=== PATIENT | female | born 1965 | race Caucasian/White ===

== ENCOUNTER → 2016-06-27 | Outpatient (CLI) | payer OTHER ==
[~2016-06-27] MED LIST: B-COTAB41 PO; CALC600T25; CALC600T34 PO; COEN1CAP; CYAN1KIT2 IM; EEMTTAB2; MAXA10TA2 PO; MECL25CH PO; MULTCAP3 PO; OMEG100037 PO; OMEG1CAP53 PO; PROT40TA PO; TAB-TAB PO; TRAM50TA PO; VIT B COMPLEX; ZOFR4TAB PO; ZOFR4TAB3 SL; [UNRECOGNIZED DRUG - OTHER]
[2016-06-27 14:03] LABS: AUTOMATED NEUTROPHIL # 5.3 TH/MM3 (1.8-7.7); BASOPHIL # 0.1 TH/MM3 (0-0.2); BASOPHIL % 0.8 % (0.0-2.0); EOSINOPHIL # 0.1 TH/MM3 (0-0.4); EOSINOPHIL % 0.8 % (0.0-4.0); HEMATOCRIT 40.5 % (35.0-46.0); HEMO FLAGS DIFF FINAL; LYMPH % 25.4 % (9.0-44.0); LYMPHOCYTE # 2.1 TH/MM3 (1.0-4.8); MEAN CELL VOLUME 87.4 FL (80.0-100.0); MEAN CORPUSCULAR HEMOGLOBIN 30.4 PG (27.0-34.0); MEAN CORPUSCULAR HGB CONC 34.8 % (32.0-36.0); PLATELET COUNT 181 TH/MM3 (150-450); RED BLOOD COUNT 4.63 MIL/MM3 (4.00-5.30); RED CELL DISTRIBUTION WIDTH 14.5 % (11.6-17.2); WHITE BLOOD COUNT 8.2 TH/MM3 (4.0-11.0)
== END ==
LOC: CLAB 13:29
PROVIDERS: ATTEND Family Medicine
DX: K62.5 Hemorrhage of anus and rectum (principal)
CPT/HCPCS: 36415; 85025

== ENCOUNTER → 2016-07-11 | Outpatient (CLI) | payer OTHER ==
[~2016-07-11] VITALS: Ht 170.8 cm; Wt 96.7 kg
[~2016-07-11] MED LIST changes: +INSULIN HUMAN REGULAR 1,000 UNITS/10 ML VIAL SQ PRN; +LACTATED RINGER'S 1000 ML IV SCH; +METOPROLOL TARTRATE 25 MG TAB PO PRN; +PROPOFOL 200 MG/20 ML AMP IV ONE; +SODIUM CHLORID 0.9% 500 ML IV SCH
[2016-07-11 13:54] VITALS: BP 120/73; PULSE 62; RESP 16; TEMP 97.5; O2SAT 97
[2016-07-11 15:31] VITALS: BP 115/61; PULSE 74; RESP 16; O2SAT 97
--- NOTE | 2016-07-12 13:10 | EKG ---
Date Performed: 07/11/2016 Time Performed: 13:21:23 PTAGE: 51 years EKG: SINUS BRADYCARDIA BORDERLINE ECG Compared to prior tracing no significant change PREVIOUS TRACING : 11/09/2007 11.03 DOCTOR: Kashif Gil Interpretating Date/Time 07/12/2016 13:09:11
--- NOTE | 2016-07-14 13:06 | MR ---
cc: CHELSEY AGUIRRE M.D., HARRY M.D. DATE: 07/11/2016 DATE OF : 1965 TYPE OF PROCEDURE Panendoscopy and colonoscopy with polypectomy performed by Dr. Carlyle Villavicencio. The patient is an outpatient. INDICATIONS FOR PROCEDURE GI bleeding. On June 27 she had passed maroon stool 3-4 times. The stool was loose associated with this bloody passage. No pain or other associated symptoms. She is status post Prema-en-Y gastric bypass many years ago and has chronic iron deficiency anemia as a result. ANESTHESIA Sedation per anesthesiology. INSTRUMENT Pentax video gastroscope and colonoscope. PROCEDURE After obtaining written informed consent the patient was placed in the left lateral decubitus position. Adequate sedation was administered. The video gastroscope was passed under direct vision through the oropharynx into the esophagus which appeared normal along its entire extent. The Z-line appeared normal at the GE junction at 35 cm. The gastric remnant appeared normal including views with retroflexion. The Billroth II type anastomosis was intact with no inflammation or ulcerations. The afferent limb was short and unremarkable. The instrument was advanced at least 15-20 cm into the efferent limb and no lesions were noted. The instrument was withdrawn. The stretcher was turned around. A digital rectal examination was performed. No gross lesions were noted. The colonoscope was placed in the anus and advanced slowly to the cecum. The appendiceal orifice and ileocecal valve appeared normal. Upon withdrawal of the instrument the mucosal surfaces were well-visualized. A flat, mildly hyperemic polyp measuring about 7-8 mm in diameter was removed from the splenic flexure with snare cautery technique. Mild left-sided diverticulosis was noted. Retroflexion of the instrument in the rectum revealed no abnormalities. The instrument was withdrawn and the procedure was terminated. The patient tolerated it well and there were no apparent complications. Upon completion she was sedated and had normal stable vital signs. IMPRESSION 1. Normal esophageal mucosa. 2. Normal Z-line at the GE junction at 35 cm. 3. Normal gastric mucosa. 4. Normal Billroth II type anastomosis with no lesions evident at the anastomosis or in the afferent or efferent limbs. 5. Colonoscopy to cecum. 6. Mild left-sided diverticulosis. 7. 7-8 mm sessile splenic flexure polyp removed with snare cautery technique. PLAN/RECOMMENDATIONS It is unclear whether the diverticular disease was the cause of her bleeding. She had been taking aspirin but this was stopped when the bleeding was noted. As per our discussion in the office will schedule small intestine capsule endoscopy to ensure there is no small bowel lesion accounting for this process. We will contact her in several days with the histology report and determine timing for follow-up colonoscopy. She has no personal or family history of colorectal neoplasia prior to this. MD DOUGLAS Mcintosh/RODOLFO /3:30 PM /12:57 PM
== END ==
LOC: HEND 12:40
DX: K57.30 Diverticulosis of large intestine without perforation or abscess without bleeding (principal); K63.89 Other specified diseases of intestine; K63.5 Polyp of colon; K92.1 Melena; D50.9 Iron deficiency anemia, unspecified; Z98.84 Bariatric surgery status; Z01.810 Encounter for preprocedural cardiovascular examination
CPT/HCPCS: 43235; 45385; 88305; 93005; 99156; 99157; J7120

== ENCOUNTER → 2016-07-11 | Outpatient (CLI) | payer OTHER ==
[~2016-07-11] MED LIST changes: -INSULIN HUMAN REGULAR 1,000 UNITS/10 ML VIAL SQ PRN; -LACTATED RINGER'S 1000 ML IV SCH; -METOPROLOL TARTRATE 25 MG TAB PO PRN; -PROPOFOL 200 MG/20 ML AMP IV ONE; -SODIUM CHLORID 0.9% 500 ML IV SCH
[2016-07-11 07:31] LABS: ANION GAP 6 MEQ/L (5-15); AST (GOT) 25 U/L (15-37); BICARBONATE 28.6 MEQ/L (21.0-32.0); BLOOD UREA NITROGEN 11 MG/DL (7-18); CHLORIDE 108 MEQ/L (98-107); GLOMERULAR FILTRATION RATE 86 ML/MIN (>89); GLUCOSE,FASTING 83 MG/DL (74-99); POTASSIUM 4.4 MEQ/L (3.5-5.1); SODIUM (NA) 143 MEQ/L (136-145)
[2016-07-11 07:35] LABS: AUTOMATED NEUTROPHIL # 2.7 TH/MM3 (1.8-7.7); BASOPHIL % 0.9 % (0.0-2.0); EOSINOPHIL # 0.1 TH/MM3 (0-0.4); EOSINOPHIL % 1.8 % (0.0-4.0); HEMATOCRIT 41.9 % (35.0-46.0); HEMO FLAGS DIFF FINAL; LYMPH % 32.1 % (9.0-44.0); LYMPHOCYTE # 1.5 TH/MM3 (1.0-4.8); MEAN CORPUSCULAR HEMOGLOBIN 29.9 PG (27.0-34.0); MEAN CORPUSCULAR HGB CONC 33.9 % (32.0-36.0); MONO % 8.4 % (0.0-8.0); NEUT % 56.8 % (16.0-70.0); PLATELET COUNT 161 TH/MM3 (150-450); RED BLOOD COUNT 4.76 MIL/MM3 (4.00-5.30); RED CELL DISTRIBUTION WIDTH 13.7 % (11.6-17.2); WHITE BLOOD COUNT 4.8 TH/MM3 (4.0-11.0)
[2016-07-11 07:41] LABS: ALKALINE PHOSPHATASE 42 U/L (45-117); ALT (GPT) 38 U/L (10-53); FERRITIN 19 NG/ML (8-252); HDL CHOLESTEROL 58.7 MG/DL (40.0-60.0); LDL CHOLESTEROL 100 MG/DL (0-99); TOTAL BILIRUBIN ADULT 0.5 MG/DL (0.2-1.0); TRANSFERRIN IRON PROFILE 235 MG/DL (200-360)
== END ==
LOC: CLAB 06:50
PROVIDERS: ATTEND Family Medicine
DX: Z00.01 Encounter for general adult medical examination with abnormal findings (principal)
CPT/HCPCS: 36415; 80053; 80061; 82728; 83540; 83550; 84443; 85025

== ENCOUNTER → 2016-09-17 | Outpatient (CLI) | payer OTHER ==
[~2016-09-17] MED LIST changes: -CALC600T34 PO; -MECL25CH PO; -OMEG1CAP53 PO; -TAB-TAB PO; -VIT B COMPLEX; -ZOFR4TAB3 SL; -[UNRECOGNIZED DRUG - OTHER]
[2016-09-17 16:49] LABS: THYROXINE (T4) 8.6 MCG/DL (4.8-13.9)
== END ==
LOC: CLAB 15:54
PROVIDERS: ATTEND Family Medicine
DX: E03.9 Hypothyroidism, unspecified (principal)
CPT/HCPCS: 36415; 84436; 84443

== ENCOUNTER → 2017-07-27 | Outpatient (CLI) | payer OTHER ==
[~2017-07-27] MED LIST changes: -CALC600T25; +CALC600T5
[2017-07-27 08:00] LABS: ALBUMIN 3.4 GM/DL (3.4-5.0); AST (GOT) 23 U/L (15-37); BLOOD UREA NITROGEN 21 MG/DL (7-18); CALCIUM 8.7 MG/DL (8.5-10.1); CHLORIDE 105 MEQ/L (98-107); CHOLESTEROL 171 MG/DL (120-200); CREATININE 0.67 MG/DL (0.50-1.00); GLOMERULAR FILTRATION RATE 92 ML/MIN (>89); GLUCOSE,FASTING 76 MG/DL (74-99); SODIUM (NA) 140 MEQ/L (136-145)
[2017-07-27 08:11] LABS: % SATURATION IRON PROFILE 31.7 % (20-50); ALKALINE PHOSPHATASE 42 U/L (45-117); ALT (GPT) 28 U/L (10-53); CHOLESTEROL/ HDL RATIO 2.63 RATIO; IRON (FE) 91 MCG/DL (50-170); LDL CHOLESTEROL 101 MG/DL (0-99); TOTAL BILIRUBIN ADULT 0.3 MG/DL (0.2-1.0); TOTAL IRON BINDING CAPACITY 287 MCG/DL (250-450); TOTAL PROTEIN 6.6 GM/DL (6.4-8.2); TRIGLYCERIDES 26 MG/DL (42-150)
[2017-07-27 16:25] LABS: HEMOGLOBIN A1C 5.4 % (4.3-6.0)
== END ==
LOC: CLAB 07:10
PROVIDERS: ATTEND Family Medicine
DX: K21.9 Gastro-esophageal reflux disease without esophagitis (principal); D50.8 Other iron deficiency anemias; G43.009 Migraine without aura, not intractable, without status migrainosus; E03.9 Hypothyroidism, unspecified; E78.2 Mixed hyperlipidemia
CPT/HCPCS: 36415; 80053; 80061; 83036; 83540; 83550; 84443